=== PATIENT | male | born 1950 | race Caucasian/White ===

== ENCOUNTER 2016-05-31 03:41 | Emergency (ER) | payer SELFPAY ==
[~2016-05-31] VITALS: Ht 165.1 cm; Wt 63.5 kg
[2016-05-31 03:47] VITALS: BP_SYST 133
[2016-05-31 03:50] VITALS: BP_SYST 133
== END 2016-05-31 03:50 ==
LOC: SED 03:41
DX: Z02.89 Encounter for other administrative examinations (principal)
CPT/HCPCS: 99283